=== PATIENT | female | born 1940 | race Caucasian/White ===

== ENCOUNTER → 2017-04-03 | Outpatient (CLI) | payer MEDICARE, BC ==
[~2017-04-03] MED LIST: GLUCOPHAGE-DPS500 MG PO; GLUCOTROL DPS10 MG PO; INVOKANA300 MG PO; MICRO-K DPS10 MEQ PO; VITAMIN D-32000 UNI1 PO; ZESTORETIC 20/21 TAB PO; ZOCOR DPS10 MG PO
== END | disposition home or self-care (01) ==
DX: I27.2 Other secondary pulmonary hypertension (principal); M79.604 Pain in right leg; M25.551 Pain in right hip; I34.0 Nonrheumatic mitral (valve) insufficiency; I07.1 Rheumatic tricuspid insufficiency

== ENCOUNTER → 2017-04-10 | Outpatient (CLI) | payer MEDICARE, BC | END | disposition home or self-care (01) | LOC: RAD.S 11:25 | DX: M54.16 Radiculopathy, lumbar region (principal); M79.604 Pain in right leg; M48.06 Spinal stenosis, lumbar region; M41.9 Scoliosis, unspecified; M43.16 Spondylolisthesis, lumbar region; M99.83 Other biomechanical lesions of lumbar region; R29.890 Loss of height ==